=== PATIENT | female | born 1955 | race Caucasian/White ===

== ENCOUNTER 2024-10-16 15:30 | Emergency (ER) | payer MEDICARE, BC ==
[~2024-10-16] VITALS: Ht 162.6 cm; Wt 65.0 kg
[2024-10-16 15:32] VITALS: O2SAT 98
[2024-10-16 17:35] LABS: BASOPHILS % 0.5 % (0.0-2.0); EOSINOPHILS % 1.1 % (0.0-5.0); HEMATOCRIT. 41.2 % (36.0-48.0); HEMOGLOBIN. 14.0 g/dL (12.0-16.0); LYMPHOCYTES % 19.3 % (20.0-50.0); MEAN PLATELET VOLUME 8.0 fl (7.4-10.4); MONOCYTES % 9.6 % (2.0-8.0); NEUTROPHILS % 69.5 % (40.0-76.0); PLATELET 278 x1000/uL (130-400); RED BLOOD CELL COUNT 4.63 mill/uL (4.2-5.4); RED CELL DISTRIBUTION WIDTH 14.1 % (11.6-14.6)
[2024-10-16 17:45] LABS: INR 1.0
[2024-10-16 17:47] LABS: CREATININE 1.0 mg/dL (0.6-1.0)
[2024-10-16 17:48] LABS: TROPONIN I HIGH SENSITIVITY 14 ng/L (3.0-34); UREA NITROGEN BLOOD 19 mg/dL (9-23)
[2024-10-16 17:49] LABS: ASPARTATE AMINOTRANSFERASE 21 IU/L (<34)
[2024-10-16 17:50] LABS: BILIRUBIN DIRECT 0.1 mg/dL (<=3.0); BILIRUBIN TOTAL 0.4 mg/dL (0.1-1.0); PROTEIN TOTAL 6.2 g/dL (6.0-8.3)
[2024-10-16 18:38] VITALS: BP 127/62; PULSE 86; RESP 18; TEMP 36.5; O2SAT 98
== END 2024-10-16 18:39 | disposition home or self-care (01) ==
LOC: ER 15:30 → CMPBEDREQ 10-17 12:59
DX: I47.10 Supraventricular tachycardia, unspecified (principal); R07.89 Other chest pain; I10 Essential (primary) hypertension; I25.2 Old myocardial infarction; Z79.02 Long term (current) use of antithrombotics/antiplatelets; Z79.82 Long term (current) use of aspirin; Z79.899 Other long term (current) drug therapy; Z95.5 Presence of coronary angioplasty implant and graft
CPT/HCPCS: 36415; 71045; 80048; 80076; 83735; 84484; 85025; 85379; 93005; 99285